=== PATIENT | male | born 1960 | race Two or more races ===

== ENCOUNTER 2023-04-29 09:55 | Emergency (ER) | payer MEDICAID ==
[~2023-04-29] VITALS: Ht 170.2 cm; Wt 84.6 kg
[2023-04-29 10:07] VITALS: BP 133/87; PULSE 66; RESP 18; O2SAT 95
[2023-04-29] MEDS ORDERED: IBUP-1456 PO (10:46)
[2023-04-29] MEDS ORDERED: CLIN300C70 PO (10:46)
== END 2023-04-29 10:53 | disposition home or self-care (01) ==
LOC: ER 09:55
DX: K04.7 Periapical abscess without sinus (principal); Z79.1 Long term (current) use of non-steroidal anti-inflammatories (NSAID); Z79.2 Long term (current) use of antibiotics